=== PATIENT | male | born 1950 | race African-American/Black ===

== ENCOUNTER 2016-08-26 09:06 | Emergency (ER) | payer OTHER, BC | END 2016-08-26 11:40 | disposition home or self-care (01) | LOC: ER 09:06 | PROC: 0HQ0XZZ Repair Scalp Skin, External Approach (ICD-10-PCS; principal; 2016-08-26) | DX: S42.292A Other displaced fracture of upper end of left humerus, initial encounter for closed fracture (principal); S01.01XA Laceration without foreign body of scalp, initial encounter; I10 Essential (primary) hypertension; E11.9 Type 2 diabetes mellitus without complications; F17.200 Nicotine dependence, unspecified, uncomplicated; V89.2XXA Person injured in unspecified motor-vehicle accident, traffic, initial encounter | CPT/HCPCS: 70450; 73030-LT; 73060-LT; 90471; 90714; 99284; A9270-GY ==

== ENCOUNTER 2016-09-02 12:02 | Emergency (ER) | payer OTHER, BC | END 2016-09-02 12:14 | disposition home or self-care (01) | LOC: ER 12:02 | DX: S01.01XD Laceration without foreign body of scalp, subsequent encounter (principal); F17.200 Nicotine dependence, unspecified, uncomplicated; I10 Essential (primary) hypertension; E11.9 Type 2 diabetes mellitus without complications | CPT/HCPCS: 99283 ==